=== PATIENT | female | born 1950 | race Caucasian/White ===

== ENCOUNTER 2019-09-27 09:04 | Outpatient (CLI) | payer MEDICARE, MEDICAID ==
[2019-09-27 12:15] VITALS: BP 118/91
--- NOTE | 2019-09-27 12:15 | SLEEP CARE CONSULTATION ---
Information from patient questionnaire entered by Mindi Hernandes. I have reviewed and concur with the information entered by Mindi Hernandes. This document represents the service I personally performed and the decisions made by me, Maria Teresa Chiu MD, [facility]. History of Present Illness Reason for Visit: New patient, Previously diagnosed sleep apnea, sleep apnea on CPAP therapy Chief Complaint: reports: Other (establish care) Duration of Symptoms: years Usual bedtime: 8561-7671 Time it takes to fall asleep: varies Snores at night: Yes Observed to quit breathing while asleep: Yes Sleeps alone due to snoring: No Number of times waking at night: varies Toss, Turn, or Twitch while sleeping: Yes Recalls having dreams: Yes Usually gets out of bed at: [id number] Feels refreshed in the morning: No (sometimes) Morning headache: No Sleepy or fatigued during the day: No (sometimes) Ever fallen asleep while driving: No Takes day naps: Yes (sometimes) Dreams during day naps: Yes Prior sleep studies: Yes Year and Where: years ago in [place], [place] Additional HPI information: I had the pleasure of seeing Ms. Lyn today regarding obstructive sleep apnea- hypopnea. As you know, she is a 69 year old lady who was diagnosed with the sleep-disordered breathing in [place], [place] long time ago. The AHI was 134.2 with juan oxygen saturation of 81%. She was prescribed a CPAP device set at 12 cmH2O. She uses the ResMed S9 Elite CPAP every night and all night. The compliance data show usage in 179 out of the past 180 nights, averaging 6.3 hours a night. The residual AHI is 0.5 and average air leak is 2 L/minute. She wears nasal pillows. She gets his supplies from a durable medical supplier in [place]. She finds the treatment very helpful. Without it she wakes up gasping. She had bariatric surgery in 2017 and lost 100 lbs. CPAP Compliance Data - Data Reviewed with Patient Average duration of nightly device use: 6h 16m Compliance rate %: 96 Current pressure setting (cmH2O): 12 Subjective Initial [place] Sleepiness Scale score: 6 Past Medical History Past Medical History: reports: Hypertension, Arthritis, Coronary Heart Disease, Arrythmia, Asthma, Other (possible gastric cancer; S/P tonsillectomy; DAVID on CPAP) Social History The patient's occupation is retired. Patient is Single and lives in [place]. Have you smoked in the past 12 months: No Alcohol use: No Caffeine use: Yes Caffeine amount and frequency: 2 cups tea, morning and dinner Family History Family history of sleep disordered breathing: Yes Family Hx Sleep Apnea: Sibling: Sleep apnea - Treated (sister) Allergies and Home Medications Drug allergies reviewed: Yes Home medication list reviewed: Yes Allergy and home medication list: Current Medications: amlodipine, Eliquis, sotalol, losartan, cetirizine, niacin, Multivitamin once a day Allergies: macrodantin, Relefen, statins Review of Systems Weight loss over past 5 years: 100 Cardiovascular: reports: high blood pressure, irregular heart rate or pulse, leg or foot swelling Respiratory: reports: shortness of breath, wheeze Gastrointestinal: reports: abdominal pain (light). denies: heartburn, difficulty swallowing, nausea, vomitting, diarrhea, other Urinary: denies: incontinence, frequency, urgency, impotence, other Neurological: reports: headaches, head trauma (2017), disorientation, gait or balance problems Psychiatric: denies: Attention Deficit Hyperactivity, anxiety, depression, mood disorder, claustrophobia, other Ear/Nose/Throat: reports: nasal congestion, sinus problems, injury to nose, tonsillectomy Endocrine: denies: thyroid disease, history of goiter, sluggishness, too hot or cold, excessive thirst, increased appetite, increased urination, unexplained weakness, other Musculoskeletal: reports: joint pain, neck pain, back pain, joint swelling, muscle pain or cramping, mobility problems Immunologic: reports: sneezing, rash, itching, allergies to food or environment Physical Exam Vital signs obtained and entered by: Dr. Maria Teresa Chiu Blood Pressure: 118/91 Cuff size: regular Heart Rate: 79 O2 Saturation: 97 Height: 5 ft 7 in Weight: 255 lb Body Mass Index: 39.9 BMI Classification: Obesity Class 2 Neck circumference: 14.5 Mood/affect: Normal HEENT: No craniofacial malformation Nostrils: patent to airflow Turbinates: normal Septum: midline Mouth and throat: narrow oropharynx Soft palate: long Hard palate: normal (She wears denture) Uvula: normal Uvula visualization: 50% Mallampati Class II Tongue: normal in size Tonsils: small Chin and jaw: normal size and position Neck: normal w/o lymphadenopathy or thyromegaly Heart: irregular rhythm Lungs: clear bilaterally Abdomen: soft, non-tender Extremities: no edema or clubbing Neurologic: intact, no focal deficits Impression and Plan I spent 100% of this visit face to face with the patient with greater than 50% of this was spent time counseling the patient and coordination of care.
== END 2019-09-27 09:05 | disposition home or self-care (01) ==
LOC: SC 09:04
PROVIDERS: ATTEND Internal Medicine Pulmonary Disease
DX: G47.33 Obstructive sleep apnea (adult) (pediatric) (principal); E66.9 Obesity, unspecified; Z68.39 Body mass index [BMI] 39.0-39.9, adult
CPT/HCPCS: 99203; G0463; 99212

== ENCOUNTER 2019-10-14 20:35 | Outpatient (CLI) | payer MEDICARE, MEDICAID | END 2019-10-14 20:36 | disposition home or self-care (01) | LOC: SC 20:35 | PROVIDERS: ATTEND Internal Medicine Pulmonary Disease | DX: G47.33 Obstructive sleep apnea (adult) (pediatric) (principal); G47.61 Periodic limb movement disorder; I48.91 Unspecified atrial fibrillation; E66.9 Obesity, unspecified; Z68.39 Body mass index [BMI] 39.0-39.9, adult | CPT/HCPCS: 95811 ==

== ENCOUNTER 2019-11-15 15:14 | Outpatient (CLI) | payer MEDICARE, MEDICAID ==
--- NOTE | 2019-11-15 16:18 | SLEEP CARE CONSULTATION ---
Information from patient questionnaire entered by Dunia Ignacio. I have reviewed and concur with the information entered by Dunia Ignacio. This document represents the service I personally performed and the decisions made by me, Maria Teresa Chiu MD, [facility]. History of Present Illness Initial [place] Sleepiness Scale score: 6 Current [place] Sleepiness Scale score: 6 Additional HPI information: I had the pleasure of seeing Ms. Lyn today regarding obstructive sleep apnea- hypopnea. As you know, she is a 69 year old lady who was diagnosed with the sleep-disordered breathing in [place], [place] long time ago. The AHI was 134.2 with juan oxygen saturation of 81%. She is presently on autoCPAP set between 4 and 12 cmH2O. She had a manual CPAP/BiPAP titration study here a month ago that showed CPAP at 8 cmH2O to be optimal. She also had atrial fibrillation and periodic leg movement of sleep. On her last visit, I ordered her a new CPAP but due to missing documents from the past (before she became our patient), Medicare did not recognize the prescription. Allergies and Home Medications Drug allergies reviewed: Yes Home medication list reviewed: Yes Review of Systems Review of systems same as previous: Yes Physical Exam Vital signs obtained and entered by: Physical exam is deferred due to the COVID- 19 pandemic. Impression and Plan IMPRESSION: 1. Obstructive Sleep Apnea-Hypopnea Syndrome, very severe, with the patient doing well on nasal CPAP therapy. She has excellent compliance and significant clinical improvement. The current pressure appears effective and comfortable. Her mask fits well. Overall, she is very satisfied with treatment and plans to continue with it long-term. In order for her to get a new CPAP, we will have to repeat the diagnostic in-laboratory polysomnography. PLAN: 1. Schedule an in-laboratory polysomnography. 2. Try to lose weight 3. Return for follow up after the sleep study. I spent 100% of this visit face to face with the patient with greater than 50% of this was spent time counseling the patient and coordination of care.
== END 2019-11-15 15:15 | disposition home or self-care (01) ==
LOC: SC 15:14
PROVIDERS: ATTEND Internal Medicine Pulmonary Disease
DX: G47.33 Obstructive sleep apnea (adult) (pediatric) (principal)
CPT/HCPCS: 99213; G0463; 99212

== ENCOUNTER 2019-12-01 20:38 | Outpatient (CLI) | payer MEDICARE, MEDICAID | END 2019-12-01 20:39 | disposition home or self-care (01) | LOC: SC 20:38 | PROVIDERS: ATTEND Internal Medicine Pulmonary Disease | DX: G47.33 Obstructive sleep apnea (adult) (pediatric) (principal); G47.61 Periodic limb movement disorder; I48.91 Unspecified atrial fibrillation | CPT/HCPCS: 95810 ==

== ENCOUNTER 2019-12-13 16:56 | Outpatient (CLI) | payer MEDICARE, MEDICAID ==
--- NOTE | 2019-12-13 13:57 | SLEEP CARE CONSULTATION ---
Information from patient questionnaire entered by Mindi Hernandes. I have reviewed and concur with the information entered by Mindi Hernandes. This document represents the service I personally performed and the decisions made by me, Maria Teresa Chiu MD, [facility]. History of Present Illness Service Date and Time: 12/13/2019 1340 Initial [place] Sleepiness Scale score: 6 Additional HPI information: To minimize the risk of COVID-19 exposure, the patient has requested and consented to this telephone visit. The patient also agrees to having her insurance billed. HPI: Ms. Lyn was called for follow up of the sleep study she had on 12/02/2019. The polysomnography showed that the patient had poor sleep efficiency due to sleep onset insomnia and several prolonged awakenings during the night. The sleep architecture was abnormal for sleep fragmentation and lack of slow wave sleep (N3). Respiratory monitoring showed mild obstructive sleep apnea-hypopnea (AHI = 13.6) associated with frequent arousals, oxyhemoglobin desaturation and mild hypoxia (juan oxygen saturation of 81%). The respiratory events occurred almost exclusively during supine sleep (supine AHI = 37.6; non-supine = 3.47). Snore was moderate in intensity. There was severe periodic limb movement of sleep contributing to the sleep fragmentation. Cardiac rhythm was atrial fibrillation. No abnormal behavior (parasomnia) observed. The patient was informed of these findings. I explained to her the pathophysiology behind obstructive sleep apnea. We then spent quite a bit of time discussing different treatment options. For mild obstructive sleep apnea, surgery and oral appliance are alternatives to nasal CPAP therapy but in moderate or severe cases, nasal CPAP is the most effective and reliable treatment. After some discussion, she opted to continue with the CPAP therapy. Allergies and Home Medications Drug allergies reviewed: Yes Home medication list reviewed: Yes Review of Systems Review of systems same as previous: Yes Impression and Plan IMPRESSION: 1. Obstructive Sleep Apnea-Hypopnea Syndrome, mild (extremely severe prior to the bariatric surgery in 2017), and positional. Positive airway pressure therapy is indicated because she also has hypertension and ischemic heart disease. As mentioned above, the patient will be prescribed a new autoCPAP set at 5 - 9 cmH2O (based on her earlier CPAP titration study). I anticipate good treatment compliance. PLAN: 1. Prescription made for an autoCPAP with heated humidifier and related supplies. 2. Avoid sleeping supine if not using CPAP. 3. Return for follow up after one month on the new machine. Visit Type: Telehealth Phone Location of Provider: Home Patient agrees and consents to this telehealth visit type: Yes Time Spent with Patient (minutes): 10 Provider Statement: I spent 100% of the Telehealth Phone Call with the patient with greater than 50% spent counseling the patient and coordination of care.
== END 2019-12-13 16:57 | disposition home or self-care (01) ==
LOC: SC 16:56
PROVIDERS: ATTEND Internal Medicine Pulmonary Disease
DX: G47.33 Obstructive sleep apnea (adult) (pediatric) (principal)

== ENCOUNTER 2020-03-08 15:13 | Outpatient (CLI) | payer MEDICARE, MEDICAID ==
[2020-03-08 16:26] VITALS: BP 130/80
--- NOTE | 2020-03-08 16:26 | SLEEP CARE CONSULTATION ---
Information from patient questionnaire entered by Mindi Hernandes. I have reviewed and concur with the information entered by Mindi Hernandes. This document represents the service I personally performed and the decisions made by me, Vivi Santiago, RN, MSN, [employer]. History of Present Illness Service Date and Time: 03/08/2020 1513 Previous diagnosis: Mild, Obstructive Sleep Apnea-Hypopnea Syndrome AHI: 13.6 Reason for follow up: first compliance after device update Equipment type: CPAP Equipment obtained from: [facility] (getting supplies as needed) Mask style: Nasal (Dreamwear) Mask brand: Respironics Backup mask available: Yes (old mask) Last cushion change: last week Prior sleep studies: Yes Year and Where: [facility] [employer] [facility] 2019 Type of Sleep Study: Polysomnography CPAP Compliance Data - Data Reviewed with Patient Average duration of nightly device use: 7h 27m Compliance rate %: 100 Current pressure setting (cmH2O): 8-12 Humidity settin Heated hose settin Average residual AHI: 1.5 (90% pressure is 10.7cmH20) Average large leak: 1m 54s Subjective Patient concerns: denies: aerophagia, mask discomfort, air blowing in eyes, mask leak noise, condensation in mask/hose, nasal congestion, dry mouth, nose, throat, epistaxis Observed to snore while using device: No Current pressure setting perceived as: comfortable On therapy, patient: denies: sleeping better, awakening more refreshed, being more awake and alert during the day, more rested overall, drowsiness while driving Initial [place] Sleepiness Scale score: 6 Current [place] Sleepiness Scale score: 7 Allergies and Home Medications Known drug allergies: Yes (macrodantin, relafen, all statins) Home medication list reviewed: No (no changes) Physical Exam Blood Pressure: 130/80 Cuff size: large Heart Rate: 94 O2 Saturation: 99 Height: 5 ft 7 in Weight: 269 lb 6.4 oz Body Mass Index: 42.2 BMI Classification: Morbidly Obese Impression and Plan 1. Obstructive Sleep Apnea-Hypopnea Syndrome, mild, with good treatment compliance and good apnea control. On CPAP therapy, the patient has better sleep quality and is more rested overall. Patient has lost weight. Currently patients BMI is 42.2 obesity class . Obesity increases the risk of apnea, CPAP pressure requirements and overall health risks especially cardiovascular and diabetes. Thus patient is advised to continue to lose weight. The patient would like to lose 50 more The patient's CPAP pressure range should accommodate some weight loss. Symptoms to report for additional pressure adjustment discussed.Patient's apnea severity and rationale for treatment to reduce apnea, improve sleep quality and reduce cardiovascular and cerebrovascular events was reviewed. I also reviewed the benefit of consistent device use of CPAP for hypertension, arrhythmia. * Continue auto CPAP pressure at 8-12 cmH2O * Notify me if snoring with mask or feeling that the pressure is too much or too little * Continue to lose weight * Call this office if any problems using CPAP * Return for follow up in 1 year , or sooner if concerns arise Visit Type: In Office Time Spent with Patient (minutes): 20 Provider Statement: I spent 100% of the Face to Face Visit with the patient with greater than 50% spent counseling the patient and coordination of care.
== END 2020-03-08 15:14 | disposition home or self-care (01) ==
LOC: SC 15:13
PROVIDERS: ATTEND Nurse Practitioner Family
DX: G47.33 Obstructive sleep apnea (adult) (pediatric) (principal); E66.01 Morbid (severe) obesity due to excess calories; Z68.41 Body mass index [BMI] 40.0-44.9, adult
CPT/HCPCS: 99213; G0463; 99212

== ENCOUNTER 2021-03-15 10:21 | Outpatient (CLI) | payer MEDICARE, MEDICAID ==
--- NOTE | 2021-03-15 11:11 | SLEEP CARE CONSULTATION ---
Information from patient questionnaire entered by Dunia Ignacio. I have reviewed and concur with the information entered by Dunia Ignacio. This document represents the service I personally performed and the decisions made by , Jackeline Martinez ARNP. History of Present Illness Service Date and Time: 03/15/2021 1021 Previous diagnosis: Mild, Obstructive Sleep Apnea-Hypopnea Syndrome AHI: 13.6 (in 2019) Reason for follow up: annual (last seen 02/2020) Equipment type: CPAP Equipment obtained from: [facility] (getting supplies as needed) Mask style: Nasal Mask brand: Respironics (Dreamwear) Backup mask available: Yes (old mask) Last cushion change: 3 weeks ago Prior sleep studies: Yes Year and Where: 2019 - [facility] Type of Sleep Study: Polysomnography HPI additional information: YARI CHINCHILLA was diagnosed to have mild, AHI 13.6, obstructive sleep apnea- hypopnea syndrome and returned today for CPAP therapy annual follow-up. CPAP Compliance Data - Data Reviewed with Patient Average duration of nightly device use: 7 hr 38 min Compliance rate %: 95.6 (180 days) Current pressure setting (cmH2O): 8-12 Humidity settin Heated hose settin Average residual AHI: 2.0 Average large leak: 2 min 34 sec Subjective Patient concerns: denies: aerophagia, mask discomfort, air blowing in eyes, mask leak noise, condensation in mask/hose, nasal congestion, dry mouth, nose, throat, epistaxis, other Observed to snore while using device: No Current pressure setting perceived as: comfortable On therapy, patient: reports: sleeping better, awakening more refreshed, being more awake and alert during the day, more rested overall. denies: drowsiness while driving Initial [place] Sleepiness Scale score: 6 (in 2019) Current [place] Sleepiness Scale score: 10 Allergies and Home Medications Home medication list reviewed: Yes (Spironolactone 12.5 mg - 1/2 pill daily) Review of Systems Review of systems same as previous: No (C5-6-7 Neck fusion Oct 2020) Physical Exam Heart Rate: 70 O2 Saturation: 91 Height: 5 ft 7 in Weight: 273 lb Body Mass Index: 42.7 BMI Classification: Morbidly Obese Impression and Plan 1. Obstructive Sleep Apnea-Hypopnea Syndrome, mild, with good treatment compliance and good apnea control. On CPAP therapy, the patient has better sleep quality and is more rested overall. Patient is satisfied with current treatment and has significant improvement of her sleep apnea. Patient informed of [employer] Respironics recall on her Dreamstation. She was advised to register her device online with them. I also advised her that she can use an inline filter to reduce change of particulates coming from machine. Patient has not seen any black particulates in the tubing or filters. She states she will continue using her machine at this time. Patient states she has lost 3 pounds. She recently had a gastric sleeve and states she will "get back on the program for weight loss. She is trying to walk but does better with a stationary bike at the gym. She was encouraged to keep up her efforts to lose weight. Patient's apnea severity and rationale for treatment to reduce apnea, improve sleep quality and reduce cardiovascular and cerebrovascular events was reviewed. I also reviewed the benefit of consistent device use of CPAP for hypertension and arrhythmia. * Continue auto CPAP pressure at 8-12 cmH2O * Patient to register her device with recall * Notify me if snoring with mask or feeling that the pressure is too much or too little * continue to try to lose weight * Call this office if any problems using CPAP * Return for follow up in 1 year, or sooner if concerns arise Counseling Topics: Spare mask, Weight loss health impact Visit Type: In Office Time Spent with Patient (minutes): 26 Provider Statement: I spent 100% of the Face to Face Visit with the patient with greater than 50% spent counseling the patient and coordination of care.
== END 2021-03-15 10:22 | disposition home or self-care (01) ==
LOC: SC 10:21
PROVIDERS: ATTEND Nurse Practitioner Family
DX: G47.33 Obstructive sleep apnea (adult) (pediatric) (principal); E66.01 Morbid (severe) obesity due to excess calories; Z68.41 Body mass index [BMI] 40.0-44.9, adult
CPT/HCPCS: 99213; G0463; 99212

== ENCOUNTER 2022-06-02 10:52 | Outpatient (CLI) | payer MEDICARE, MEDICAID ==
[2022-06-02 13:22] VITALS: BP 130/92
--- NOTE | 2022-06-02 13:22 | SLEEP CARE CONSULTATION ---
Information from patient questionnaire entered by Francois Soto. I have reviewed and concur with the information entered by Francois Soto. This document represents the service I personally performed and the decisions made by me, Maria Teresa Chiu MD, [facility]. History of Present Illness Service Date and Time: 06/02/2022 1052 Previous diagnosis: Mild, Obstructive Sleep Apnea-Hypopnea Syndrome AHI: 13.6 (in 2019) Reason for follow up: annual (LAST PORSCHE 03/20) Equipment type: CPAP (DREAMSTATION) Equipment obtained from: [facility] (getting supplies as needed) Mask style: Nasal [facility]: Yes [facility] Type of Sleep [facility]: Pol[facility]omn[facility] HPI additional information: Ms. Lyn returned today for follow up of nasal CPAP therapy. She was diagnosed to have mild obstructive sleep apnea-hypopnea syndrome. The patient went to [facility] for the equipment and was fitted with an [id number] nasal cushion. She reports using the device nightly and all through the night. The compliance report shows usage in 174 nights out of the past 180 nights, averaging 8.1 hours a night. She complained of no particular problem with the device such as soreness on the face, dry nose, epistaxis, nasal congestion or headache. She thinks that the pressure of 8 - 12 cmH2O is comfortable. On the CPAP therapy she notices improvement in her sleep quality, and that she wakes up feeling fresher in the morning and more awake/alert during the day. The [place] Sleepiness Scale score 6. The average residual AHI is 2: and average time in large leak per day is 7 minutes. The 90th percentile pressure is 11.2 cmH2O. Sleep Study - Results Type of Sleep Study: Polysomnography [facility]: Yes [email or web address] Compliance Data - Data Reviewed with Patient Average duration of nightly device use: 8 hours, 7 minutes, 26 seconds Compliance rate %: 96.7 (11/30/21 to 05/28/22) Current pressure setting (cmH2O): 8-12 Average residual AHI: 2 Subjective Initial [place] Sleepiness Scale score: 6 (in 2019) Current [place] Sleepiness Scale score: 6 (06/02/22) Allergies and Home Medications Drug allergies reviewed: Yes Home medication list reviewed: Yes Review of Systems Review of systems same as previous: Yes Physical Exam Vital signs obtained and entered by: DARION WEEKS Blood Pressure: 130/92 (LEFT WRIST ) Heart Rate: 86 O2 Saturation: 99 Height: 5 ft 7 in Weight: 296 lb Body Mass Index: 46.3 BMI Classification: Morbidly Obese Impression and Plan IMPRESSION: 1. Obstructive Sleep Apnea-Hypopnea Syndrome, mild, with the patient doing well on nasal CPAP therapy. She has excellent compliance and significant clinical improvement. The current pressure appears effective and comfortable. Overall, she is very satisfied with treatment and plans to continue with it long-term. No adjustment is necessary today. PLAN: 1. Continue with autoCPAP set at 8 12 cmH2O. 2. Try to lose weight 3. Return in one year for follow up or earlier if there is any problem with the treatment. Continue with device pressure at (cmH2O): 8 - 12 Follow up with Sleep Care in: 1 year Visit Type: In Office Time Spent with Patient (minutes): 15 Provider Statement: I spent 100% of the Face to Face Visit with the patient with greater than 50% spent counseling the patient and coordination of care.
== END 2022-06-02 10:53 | disposition home or self-care (01) ==
LOC: SC 10:52
PROVIDERS: ATTEND Internal Medicine Pulmonary Disease
DX: G47.33 Obstructive sleep apnea (adult) (pediatric) (principal); E66.01 Morbid (severe) obesity due to excess calories; Z68.42 Body mass index [BMI] 45.0-49.9, adult
CPT/HCPCS: 99212; G0463